=== PATIENT | female | born 1990 | race Caucasian/White ===

== ENCOUNTER 2019-09-17 17:23 | Emergency (ER) | payer SELFPAY ==
[~2019-09-17] VITALS: Ht 157.5 cm; Wt 61.0 kg
[~2019-09-17 17:23] MED LIST: CARV25TA47 MT; CLON0.252 MT; HYDR-4135 MT; NEPVIT MT; NIFE-32 MT; SEVE800T8 MT; SULF1TAB47 MT
[2019-09-17] MEDS ORDERED: METOCLOPRAMIDE HCL 10MG/2ML VIAL IV ONE (18:30)
[2019-09-17] MEDS ORDERED: CLONIDINE 0.2MG TABLET PO ONE (18:30)
[2019-09-17] MEDS ORDERED: DIPHENHYDRAMINE 50MG/ML VIAL IV ONE (18:30)
[2019-09-17 19:00] LABS: BASOPHILS % 2.1 % (0.0-2.0); EOSINOPHILS % 3.5 % (0.0-5.0); HEMATOCRIT. 37.4 % (36.0-48.0); LYMPHOCYTES % 30.9 % (20.0-50.0); MEAN CORPUSCULAR HEMOGLOBIN 30.5 pg (28.0-32.0); MEAN CORPUSCULAR VOLUME 94.7 fL (81.0-99.0); MEAN PLATELET VOLUME 8.6 fl (7.4-10.4); MONOCYTES % 7.9 % (2.0-8.0); NEUTROPHILS % 55.6 % (40.0-76.0); PLATELET 299 x1000/uL (130-400); RED BLOOD CELL COUNT 3.95 mill/uL (4.2-5.4); RED CELL DISTRIBUTION WIDTH 15.6 % (11.6-14.6)
[2019-09-17 19:05] LABS: CHLORIDE 102 mEq/L (98-107)
[2019-09-17 19:06] LABS: HCG SCREEN NEGATIVE
[2019-09-17] MEDS ORDERED: HYDRALAZINE 20MG/ML VIAL IV ONE ×2 (20:15→20:45)
[2019-09-17] MEDS ORDERED: KETOROLAC 30MG/ML VIAL IV ONE (20:30)
[2019-09-17 22:46] VITALS: BP 156/89
== END 2019-09-17 22:53 | disposition home or self-care (01) ==
LOC: ER 17:23
DX: I16.0 Hypertensive urgency (principal); R51 Headache; I12.0 Hypertensive chronic kidney disease with stage 5 chronic kidney disease or end stage renal disease; N18.6 End stage renal disease; Z99.2 Dependence on renal dialysis; F41.9 Anxiety disorder, unspecified; Z88.1 Allergy status to other antibiotic agents; Z88.3 Allergy status to other anti-infective agents; Z88.5 Allergy status to narcotic agent; Z88.2 Allergy status to sulfonamides
CPT/HCPCS: 36415; 70450; 80053; 84484; 84703; 85025; 93005; 96374; 96375; 99284; J0360; J1200; J2765; Z7610